=== PATIENT | male | born 1975 | race African-American/Black ===

== ENCOUNTER 2016-09-13 20:23 | Emergency (ER) | payer OTHER ==
[2016-09-13 20:43] VITALS: BP 140/88; PULSE 66; TEMP 98.1; BMI 22.6
--- NOTE | 2016-09-13 20:47 | PDOC ---
History of Present Illness - General Chief Complaint: Bite Stated Complaint: RASH Time Seen by Provider: 09/13/16 20:42 History Source: Patient - History of Present Illness Initial Comments: 09/13/16 21:04 Patient is a 41-year-old male with no past medical history presenting to the ER today complaining of a rash on his arm and chest. 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 He does not wear long sleeves while working. Patient states that his rash is very itchy and keeps him up at night. Denies fevers or chills. He has never had this rash before. Hydrocortisone cream [id number] has not helped his symptoms. Past History - Travel Traveled outside of the country in the last 30 days: No Close contact w/someone who was outside of country & ill: No - Past Medical History Allergies/Adverse Reactions: Allergies Allergy/AdvReac Type Severity Reaction Status Date / Time No Known Allergies Allergy Verified 09/13/16 20:39 Home Medications: Ambulatory Orders Clobetasol Prop 0.05% Top Cr [Temovate (Nf)] 30 gm NR BID #1 tube 09/13/16 - Immunization History Immunization Up to Date: Yes - Psycho/Social/Smoking Cessation Hx Anxiety: No Suicidal Ideation: No Smoking History: Never smoked Have you smoked in the past 12 months: No Information on smoking cessation initiated: No Hx Alcohol Use: No Drug/Substance Use Hx: No Substance Use Type: None Review of Systems - Review of Systems Able to Perform ROS?: Yes Is the patient limited Trinidadian proficient: No Constitutional: No: Chills, Fever Integumentary: Yes: Dryness, Erythema, Pruritus, Rash. No: Bruising, Change in Color *Physical Exam - Vital Signs Last Vital Signs Temp Pulse Resp BP Pulse Ox 98.1 F 66 18 140/88 100 09/13/16 20:36 09/13/16 20:36 09/13/16 20:36 09/13/16 20:36 09/13/16 20:36 - Physical Exam General Appearance: Yes: Nourished, Appropriately Dressed. No: Apparent Distress HEENT: positive: EOMI, PAULETTE, Normal Voice Integumentary: positive: Normal Color, Dry, Warm, Erythema, Rash (Scattered papular rash on the wrist, arm and trunk. ). negative: Petechiae Medical Decision Making - Medical Decision Making 09/13/16 21:07 Patient is a 41-year-old male complaining of rash. Patient has scattered papular rash/bites on his L wrist, trunk, and left arm. Rash is not consistent with scabies infection. Rash appears consistent with an allergy. Most likely dust mites and patient's history and the fact that the rash started after he started his job at the [employer]. Patient does not wear long sleeves while working. He usually wears a loose fitting shirts. We'll discharge patient home at this time. Prescribed clobetasol cream for the rash. Instructed to wear long sleeves and gloves while working. Also instructed patient to follow up with paginator and primary care doctor. Patient understands all discharge instructions and all questions were answered at this time. *DC/Admit/Observation/Transfer Diagnosis at time of Disposition: Rash and other nonspecific skin eruption - Discharge Dispostion Disposition: HOME Condition at time of disposition: Stable - Prescriptions Prescriptions: Clobetasol Prop 0.05% Top Cr [Temovate (Nf)] 30 gm NR BID #1 tube - Referrals Referrals: Luigi Fields [Primary Care Provider] - Zulma Hampton MD [Staff Physician] - - Patient Instructions Printed Discharge Instructions: DI for Rash Additional Instructions: You have a rash. This is most likely due to dust mites from work. Your prescribed clobetasol cream for the itch. He may use this twice a day to the affected areas. Apply a thin layer over the itchy skin. Do not use this medication on your face. Start taking Zyrtec once a day to help with the itch. He may also take Benadryl at night if needed. Do not drive after taking Benadryl. You may use cool compresses, aloe, or chamomile lotion as over-the- counter solutions. Wear long sleeves while at work to avoid contact with the allergen. Follow up with her primary care doctor. He will also have a referral for paginator if needed. Return to the emergency department if he develops any fevers, chills, signs of infection such as redness around the irritated sites or foul-smelling drainage, or if there are any changes in her symptoms.
[2016-09-13] MEDS ORDERED: LORATADINE 10 MG TABLET PO ONE (21:12)
[2016-09-13] MEDS ORDERED: LORATADINE 10 MG TABLET ONE (21:13)
== END 2016-09-13 21:21 | disposition home or self-care (01) ==
LOC: JER 20:23
DX: L23.89 Allergic contact dermatitis due to other agents (principal)
CPT/HCPCS: 99281-25

== ENCOUNTER 2017-08-02 11:46 | Emergency (ER) | payer OTHER ==
[2017-08-02 11:52] VITALS: BMI 28.3
[2017-08-02] MEDS ORDERED: SODIUM CHLORIDE 1,000 ML IV STA (12:56)
[2017-08-02] MEDS ORDERED: diazePAM CARPU-JECT 10 MG/2 ML DISP.SYRIN IVPUSH ONE (12:57)
--- NOTE | 2017-08-02 13:00 | PDOC ---
Attending Attestation - Resident Resident Name: Patel Mcmahon - ED Attending Attestation I have performed the following: I have examined & evaluated the patient, The case was reviewed & discussed with the resident, I agree w/resident's findings & plan, Exceptions are as noted - HPI HPI: 42 yo M with prior history of alcohol abuse, recent relapse with a binge a few days ago. Presenting with N/V, shaking hands, feeling ill since his last drink 3 days ago. Denies fever, chills, cough, recent illness. No sick contacts. He has been unable to keep anything down at home. - Physicial Exam PE: GENERAL: Awake, alert, and fully oriented, in no acute distress HEAD: No signs of trauma EYES: PERRLA, EOMI, sclera anicteric, conjunctiva clear ENT: Auricles normal inspection, hearing grossly normal, nares patent, oropharynx clear without exudates. Dry mucosa. +Tongue fasciculations. NECK: Normal ROM, supple, no lymphadenopathy, JVD, or masses LUNGS: Breath sounds equal, clear to auscultation bilaterally. No wheezes, and no crackles HEART: Regular rate and rhythm, normal S1 and S2, no murmurs, rubs or gallops ABDOMEN: Soft, nontender, normoactive bowel sounds. No guarding, no rebound. No masses EXTREMITIES: Normal range of motion, no edema. No clubbing or cyanosis. No cords, erythema, or tenderness. +Fine tremors in the hands B/L. NEUROLOGICAL: Cranial nerves II through XII grossly intact. Normal speech, normal gait SKIN: Warm, Dry, normal turgor, no rashes or lesions noted. 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 D/w Dr. Rader, recommended a regimen to treat at home in light of somewhat mild symptoms. Also gave information for outpatient programs.
[2017-08-02] MEDS ORDERED: chlordiazePOXIDE HCL 25 MG CAPSULE PO ONE (13:18)
[2017-08-02] MEDS ORDERED: chlordiazePOXIDE HCL 25 MG CAPSULE ONE (13:32)
--- NOTE | 2017-08-02 14:16 | PDOC ---
History of Present Illness - General Chief Complaint: Substance Abuse Stated Complaint: CHEST PAIN, VOMITING/ALCOHOL WITHDRAWAL Time Seen by Provider: 08/02/17 12:19 History Source: Patient Exam Limitations: No Limitations - History of Present Illness Initial Comments: 08/02/17 14:09 42m with pmh of alcohol withdrawal in March 2016 presents to the ER with multiple episodes of vomiting, diaphoresis, tremors and abdominal pain for the past 3 days. Patient claims he was sober till May when he started drinking again. He stopped drinking again 3 days ago and started developing those symptoms. He never had a seizure, denies tactile, visual or auditory hallucinations. Usually drinks 5 drinks a day. Past History - Past Medical History Allergies/Adverse Reactions: Allergies Allergy/AdvReac Type Severity Reaction Status Date / Time No Known Allergies Allergy Verified 08/02/17 11:52 Home Medications: Ambulatory Orders Chlordiazepoxide [Librium -] 25 mg PO Q6HPO #5 capsule MDD 3 pills 08/02/17 COPD: No - Immunization History Immunization Up to Date: Yes - Suicide/Smoking/Psychosocial Hx Smoking History: Never smoked Have you smoked in the past 12 months: No Information on smoking cessation initiated: No Hx Alcohol Use: Yes Drug/Substance Use Hx: No Substance Use Type: Alcohol Review of Systems - Review of Systems Able to Perform ROS?: Yes Constitutional: Yes: Diaphoresis, Night Sweats HEENTM: No: Symptoms Reported Respiratory: No: Symptoms reported Cardiac (ROS): No: Symptoms Reported ABD/GI: Yes: See HPI : No: Symptoms Reported Neurological: Yes: Headache. No: Numbness, Paresthesia, Seizure, Tingling Endocrine: No: Symptoms Reported All Other Systems: Reviewed and Negative *Physical Exam - Vital Signs Last Vital Signs Temp Pulse Resp BP Pulse Ox 98.4 F 81 19 168/99 99 08/02/17 11:50 08/02/17 11:50 08/02/17 11:50 08/02/17 11:50 08/02/17 11:50 - Physical Exam General Appearance: Yes: Nourished, Appropriately Dressed. No: Apparent Distress HEENT: positive: PAULETTE, Normal ENT Inspection, Other (tongue fasciculations) Respiratory/Chest: positive: Lungs Clear, Normal Breath Sounds. negative: Chest Tender, Respiratory Distress Cardiovascular: positive: Regular Rhythm, Regular Rate, S1, S2 Gastrointestinal/Abdominal: positive: Normal Bowel Sounds, Flat, Soft. negative : Tender Musculoskeletal: positive: Normal Inspection Extremity: positive: Normal Capillary Refill, Normal Inspection, Normal Range of Motion, Other (tremors of fingers) Integumentary: positive: Normal Color, Dry, Warm, Diaphoresis Neurologic: positive: Fully Oriented, Normal Mood/Affect, Normal Response, Motor Strength 08/24 ED Treatment Course - LABORATORY CBC & Chemistry Diagram: 08/02/17 13:50 08/02/17 13:03 - Medications Given in the ED: ED Medications Discontinued Medications Generic Name Dose Route Start Last Admin Trade Name Freq PRN Reason Stop Dose Admin Chlordiazepoxide HCl 50 mg 08/02/17 13:18 08/02/17 13:36 Librium - PO 08/02/17 13:19 50 mg ONCE ONE Administration Diazepam 5 mg 08/02/17 12:57 08/02/17 13:36 Valium Injection - IVPUSH 08/02/17 12:58 Not Given ONCE ONE Sodium Chloride 1,000 mls @ 1,000 mls/hr 08/02/17 12:56 08/02/17 13:56 Normal Saline - IV 08/02/17 13:55 1,000 mls/hr ASDIR STA Administration Medical Decision Making - Medical Decision Making 08/02/17 14:28 42M with alcohol withdrawal symptoms. CIWA score of 9 Will draw blood and give librium and fluids Call Dr Matthews at 1313 who recommended outpatient treatment due to mild nature of withdrawal with recommendations to go to [facility] outpatient center or the [facility] inpatient in case the symptoms persevere. Outpatient regiment will include a total of 25mg librium q4-6h x5 08/02/17 14:55 Elevated liver enzymes and lipase of 522 08/02/17 16:15 Will discharge with prescription and referral to [facility] outpatient clinic *DC/Admit/Observation/Transfer Diagnosis at time of Disposition: Alcohol withdrawal - Discharge Dispostion Disposition: HOME Admit: No - Prescriptions Prescriptions: Chlordiazepoxide [Librium -] 25 mg PO Q6HPO #5 capsule MDD 3 pills - Referrals Referrals: Luigi Fiedls [Primary Care Provider] - - Patient Instructions Printed Discharge Instructions: DI for Alcohol Abuse Additional Instructions: Come back to the ER for any new, worsening or concerning symptom. Follow up with outpatient rehab clinic and your primary care provider Dr. Fields within 2-3 days. - Post Discharge Activity
[2017-08-02 14:24] LABS: BASO % 0.2 % (0-2.0); HEMOGLOBIN 15.2 GM/dL (11.7-16.9); LYMPH % 18.2 % (8-40); MCH 32.7 pg (25.7-33.7); MCHC 33.7 g/dl (32.0-35.9); MEAN CELL VOLUME 96.9 fl (80-96); MEAN PLT VOLUME 8.7 fl (7.5-11.1); NEUT % 71.6 % (42.8-82.8); PLATELET COUNT 92 K/MM3 (134-434); RBC 4.65 M/mm3 (4.00-5.60); RDW 15.2 % (11.9-15.9); WHITE BLOOD COUNT 6.5 K/mm3 (4.0-10.0)
[2017-08-02 14:28] LABS: ALBUMIN 4.5 g/dl (3.4-5.0); ALK PHOS 86 U/L (45-117); ANION GAP 12 (8-16); BILIRUBIN,TOTAL 1.3 mg/dL (0.2-1.0); BLOOD UREA NITROGEN 8 mg/dL (7-18); CHLORIDE 103 mmol/L (98-107); CO2 25 mmol/L (21-32); CREATININE 0.8 mg/dL (0.7-1.3); GLUCOSE,RANDOM 94 mg/dL (74-106); SGPT/ALT 126 U/L (12-78); SODIUM 140 mmol/L (136-145); TOT PROT 8.6 g/dl (6.4-8.2)
[2017-08-02 14:32] LABS: LIPASE 522 U/L (73-393); POTASSIUM 4.1 mmol/L (3.5-5.1); SGOT/AST 187 U/L (15-37)
[2017-08-02 16:40] LABS: COCAINE, UR NEGATIVE ng/ml (CUTOFF=300); METHADONE, UR NEGATIVE ng/ml (CUTOFF=300); OPIATES, URI NEGATIVE ng/ml (CUTOFF=300); PHENCYCLIDINE,URINE NEGATIVE ng/ml (CUTOFF=25); URINE AMPHETAMINES NEGATIVE ng/ml (CUTOFF=500); URINE BARBITURATES NEGATIVE ng/ml (CUTOFF=200); URINE BENZODIAZEPINES NEGATIVE ng/ml (CUTOFF=200)
[2017-08-02 16:43] VITALS: BP 136/94; PULSE 82; TEMP 98
--- NOTE | 2017-08-05 14:15 | EKG ---
Test Reason : Blood Pressure : / mmHG Vent. Rate : 077 BPM Atrial Rate : 077 BPM P-R Int : 154 ms QRS Dur : 096 ms QT Int : 362 ms P-R-T Axes : 057 -18 013 degrees QTc Int : 409 ms NORMAL SINUS RHYTHM MODERATE VOLTAGE CRITERIA FOR LVH, MAY BE NORMAL VARIANT BORDERLINE ECG WHEN COMPARED WITH ECG OF 16-APR-2016 03:30, NO SIGNIFICANT CHANGE WAS FOUND Confirmed by CARLOS ESCOTO MD ([id number]) on 08/05/2017 2:14:45 PM Referred By: Confirmed By:CARLOS ESCOTO MD
== END 2017-08-02 16:44 | disposition home or self-care (01) ==
LOC: JER 11:46
PROC: 3E0337Z Introduction of Electrolytic and Water Balance Substance into Peripheral Vein, Percutaneous Approach (ICD-10-PCS; principal; 2017-08-02)
DX: F10.239 Alcohol dependence with withdrawal, unspecified (principal)
CPT/HCPCS: 36415; 80053; 80307; 83690; 85025; 93005; 93010; 96360; 99284-25; J7030

== ENCOUNTER 2019-03-30 07:33 | Emergency (ER) | payer OTHER ==
[2019-03-30 07:39] VITALS: BMI 29.2
--- NOTE | 2019-03-30 08:09 | PDOC ---
History of Present Illness - General Chief Complaint: Pain Stated Complaint: NUMBNESS OF FEET Time Seen by Provider: 03/30/19 08:06 History Source: Patient - History of Present Illness Timing/Duration: other Past History - Past Medical History Allergies/Adverse Reactions: Allergies Allergy/AdvReac Type Severity Reaction Status Date / Time No Known Allergies Allergy Verified 03/30/19 07:39 Home Medications: Ambulatory Orders NK [No Known Home Medication] 03/30/19 COPD: No Other medical history: denies - Immunization History Immunization Up to Date: Yes - Psycho Social/Smoking Cessation Hx Smoking History: Never smoked Have you smoked in the past 12 months: No Information on smoking cessation initiated: No Hx Alcohol Use: Yes (social) Drug/Substance Use Hx: No Substance Use Type: Alcohol Review of Systems - Review of Systems Constitutional: No: Chills, Fever Neurological: Yes: Numbness. No: Headache, Paresthesia, Tingling, Weakness *Physical Exam - Vital Signs Last Vital Signs Temp Pulse Resp BP Pulse Ox 98.8 F 88 20 117/72 99 03/30/19 07:36 03/30/19 07:36 03/30/19 07:36 03/30/19 07:36 03/30/19 07:36 - Physical Exam General Appearance: Yes: Appropriately Dressed. No: Apparent Distress HEENT: positive: Normal Voice Neck: positive: Supple Respiratory/Chest: negative: Respiratory Distress Integumentary: positive: Dry, Warm Neurologic: positive: Fully Oriented, Alert, Normal Mood/Affect, Motor Strength 5/5. negative: Numbness, Sensory Deficit ED Treatment Course - LABORATORY CBC & Chemistry Diagram: 03/30/19 08:10 03/30/19 08:10 Medical Decision Making - Medical Decision Making 03/30/19 08:06 43 yo M, denies any sig hx, here w/ numbness to toes b/l that has been constant x several days. No tingling, weakness. No recent injury. No h/o same. Denies h/ o ETOH abuse See exam Peripheral numbness Etiology unclear No h/o DM Exam wnl Labs check electrolytes Anticipate dc w/ neuro f/u 03/30/19 09:55 Labs within normal limits. Patient stable for discharge to follow-up with neurology if symptoms persist Discharge - Discharge Information Problems reviewed: Yes Clinical Impression/Diagnosis: Numbness Condition: Good Disposition: HOME - Follow up/Referral Referrals: Luigi Fields [Primary Care Provider] - Kwaku Castillo MD [Staff Physician] - - Patient Discharge Instructions Patient Printed Discharge Instructions: DI for Numbness/tingling Additional Instructions: Cause of your numbness is unclear at this time as your labs were all normal If symptoms persist, you will need further evaluation with a neurologist. Please call Dr. Castillo to make an appointment - Post Discharge Activity
[2019-03-30 09:02] LABS: BASO % 0.7 % (0-2.0); EOS % 0.3 % (0-4.5); HEMATOCRIT 41.8 % (35.4-49); LYMPH % 30.2 % (8-40); MCH 33.9 pg (25.7-33.7); MCHC 33.5 g/dl (32.0-35.9); MEAN CELL VOLUME 101.1 fl (80-96); MEAN PLT VOLUME 7.8 fl (7.5-11.1); MONO % 17.7 % (3.8-10.2); NEUT % 51.1 % (42.8-82.8); PLATELET COUNT 239 K/MM3 (134-434); RBC 4.13 M/mm3 (4.00-5.60); RDW 14.7 % (11.9-15.9)
[2019-03-30 09:32] LABS: ALBUMIN 3.6 g/dl (3.4-5.0); BILIRUBIN,TOTAL 0.4 mg/dL (0.2-1); BLOOD UREA NITROGEN 8.7 mg/dL (7-18); CALCIUM 8.7 mg/dL (8.5-10.1); MAGNESIUM 2.2 mg/dL (1.8-2.4); POTASSIUM 3.8 mmol/L (3.5-5.1); TOT PROT 6.9 g/dl (6.4-8.2)
[2019-03-30 10:03] VITALS: BP 118/67; PULSE 82; TEMP 98.2
== END 2019-03-30 10:03 | disposition home or self-care (01) ==
LOC: JER 07:33
DX: R20.0 Anesthesia of skin (principal)
CPT/HCPCS: 36415; 80053; 83735; 85025; 99282-25